=== PATIENT | female | born 1955 | race Caucasian/White ===

== ENCOUNTER 2016-04-09 14:50 | Outpatient (CLI) | payer BC ==
--- NOTE | 2016-04-09 15:40 | DIAGNOSTIC IMAGING REPORT ---
PROCEDURE: MG BILATERAL SCREENING W/CAD INDICATION: Screening, remote family history of breast cancer TECHNIQUE: Standard CC and MLO views bilaterally. Computer aided detection was used. COMPARISON: 11/25/2014, 12/21/2011, 12/08/2010 FINDINGS: Dense fibroglandular tissue is present bilaterally. No developing densities, areas of architectural distortion, or suspicious microcalcifications. IMPRESSION: 1. Stable mammograms without radiographic evidence of malignancy. RESULT CODE: 1- Negative. A. A negative report should not delay biopsy if a dominant or clinically suspicious mass is present. 10-15% of cancers are not identified by x-ray. B. A negative report may reinforce clinical impression. C. Adenosis and dense breasts may obscure an underlying neoplasm. D. False positive reports average 6-10%. E.. A yearly screening mammogram is recommended. A reminder letter will be scheduled.
[2016-06-02] MEDS ORDERED: MULTIPLE VITAMIN PO (13:00)
[2016-06-02] MEDS ORDERED: ATORVASTATIN CA20 MG PO (13:00)
== END 2016-04-09 23:00 ==
LOC: MAM SRH 14:50
DX: Z12.31 Encounter for screening mammogram for malignant neoplasm of breast (principal)

== ENCOUNTER 2016-06-03 11:52 | Day surgery (SDC) | payer BC ==
[~2016-06-03] VITALS: Ht 162.6 cm; Wt 67.0 kg
[~2016-06-03 11:52] MED LIST: ATORVASTATIN CA20 MG PO; MULTIPLE VITAMIN PO
[2016-06-03] MEDS ORDERED: DOXYCYCLINE100 MG PO (12:02)
--- NOTE | 2016-06-03 13:32 | Provider's Discharge Care Plan ---
Problem, Goal, Plan Problem List 1. At risk for colon cancer
--- NOTE | 2016-06-03 13:32 | Provider's Discharge Care Plan ---
Problem, Goal, Plan Problem List 1. At risk for colon cancer
--- NOTE | 2016-06-03 14:29 | OPERATIVE REPORT ---
DATE OF SURGERY: 06/03/2016 SURGEON: Dakota Palomino MD PREOPERATIVE DIAGNOSIS: 1. History of colon polyps POSTOPERATIVE DIAGNOSIS: 1. Normal colonoscopy PROCEDURE PERFORMED: Colonoscopy. ANESTHESIA: Total IV general. INDICATIONS: The patient is a 61-year-old woman with previous adenomatous colon polyp. SURGICAL TECHNIQUE: The patient was taken to the endoscopy suite, where total IV general was administered and the patient was placed in the left lateral decubitus position. A well-lubricated colonoscope was advanced the length colon under direct vision. The ileocecal valve and tip of the cecum were seen. On withdrawal, the entire colon was examined including a retroflexed view of the rectum, and no polyps or tumors were found. The patient left in good condition.
[2016-06-03 14:44] VITALS: BP 125/78
== END 2016-06-03 14:40 | disposition home or self-care (01) ==
LOC: OR SRH 11:52 → SCU SRH 11:53 → OR SRH 13:15
PROVIDERS: Surgery
PROC: 0DJD8ZZ Inspection of Lower Intestinal Tract, Via Natural or Artificial Opening Endoscopic (ICD-10-PCS; principal; 2016-06-03 13:15)
DX: Z12.11 Encounter for screening for malignant neoplasm of colon (principal); Z86.010 Personal history of colon polyps
CPT/HCPCS: 29229; 29240; 50004; 60001; 83526